=== PATIENT | male | born 1955 | race American Indian/Alaskan Native ===

== ENCOUNTER 2019-10-20 15:36 | Emergency (ER) | payer MEDICAID, MEDICARE ==
[2019-10-20 20:44] VITALS: BP 147/99
--- NOTE | 2019-10-20 20:49 | Emergency Department Report ---
Chief Complaint: Extremity Injury, Lower Stated Complaint: BODY ACHES Time Seen by Provider: 10/20/19 20:43 - HPI History of Present Illness: This is a 63 y.o. M. that presents to the ER with headache and burning pain to LLE for weeks. PMH of HTN, sciatica, CHF, BPH, and arthritis. Denies recent injury or weakness - Exam Vital Signs: Vital Signs 10/20/19 15:50 Temperature 98.4 F Pulse Rate 91 H Respiratory 18 Rate Blood Pressure 147/99 O2 Sat by Pulse 94 Oximetry MSE screening note: Focused history and physical exam performed. Due to findings the following was ordered: ED Disposition for MSE Condition: Stable
[2019-10-20] MEDS: KETOROLAC 30 MG/1 ML INJ IM ONE (23:38)
[2019-10-20] MEDS: dexAMETHasone 20 MG/5 ML VIAL IM ONE (23:38)
--- NOTE | 2019-10-21 00:49 | Emergency Department Report ---
ED General Adult HPI - General Chief complaint: Extremity Injury, Lower Stated complaint: BODY ACHES Time Seen by Provider: 10/20/19 20:43 Source: patient Mode of arrival: Ambulatory Limitations: No Limitations - History of Present Illness Initial comments: Mr. Rocha is a 63 y.o. M. that presents to the ER with compaint of bilat musculoskeletal pain , interimittent ,headache and low back pain with burning pain to LLE for weeks. pt has hx of HTN, sciatica, CHF, BPH, and arthritis. He denies recent injury or weakness , symptoms are exacerbated by bending ,twisting, reaching. Symptoms are relieved by rest. -: Sudden Location: back, lower extremity Severity scale (0 -10): 6 Quality: aching Consistency: intermittent Improves with: rest Worsens with: movement Associated Symptoms: denies other symptoms - Related Data Previous Rx's Medication Instructions Recorded Last Taken Type Acetaminophen [Non-Aspirin Extra 1,000 mg PO Q6HR PRN #60 tablet 10/21/19 Unknown Rx Strength] Diclofenac 1% [Diclofenac 1% 1 applicatio TP Q6H PRN #1 tube 10/21/19 Unknown Rx topical gel] Allergies Allergy/AdvReac Type Severity Reaction Status Date / Time No Known Allergies Allergy Unverified 10/20/19 15:39 ED Review of Systems ROS: Stated complaint: BODY ACHES Other details as noted in HPI Constitutional: denies: chills, fever Eyes: denies: eye pain, eye discharge, vision change ENT: denies: ear pain, throat pain Respiratory: denies: cough, shortness of breath, wheezing Cardiovascular: denies: chest pain, palpitations Endocrine: no symptoms reported Gastrointestinal: denies: abdominal pain, nausea, diarrhea Genitourinary: denies: urgency, dysuria Musculoskeletal: back pain, arthralgia, myalgia Skin: denies: rash, lesions Neurological: denies: headache, weakness, paresthesias Psychiatric: denies: anxiety, depression Hematological/Lymphatic: denies: easy bleeding, easy bruising ED Past Medical Hx - Past Medical History Previous Medical History?: Yes Hx Hypertension: Yes Hx GERD: Yes Hx Renal Disease: Yes Hx Arthritis: Yes Additional medical history: siatica - Surgical History Past Surgical History?: No - Social History Smoking Status: Former Smoker Substance Use Type: Alcohol - Medications Home Medications: Home Medications Medication Instructions Recorded Confirmed Last Taken Type Acetaminophen [Non-Aspirin Extra 1,000 mg PO Q6HR PRN #60 tablet 10/21/19 Unknown Rx Strength] Diclofenac 1% [Diclofenac 1% 1 applicatio TP Q6H PRN #1 tube 10/21/19 Unknown Rx topical gel] ED Physical Exam - General Limitations: No Limitations General appearance: alert, in no apparent distress - Head Head exam: Present: normocephalic, normal inspection - Eye Eye exam: Present: normal appearance, PERRL, EOMI Pupils: Present: normal accommodation - ENT ENT exam: Present: mucous membranes moist - Neck Neck exam: Present: normal inspection, full ROM. Absent: tenderness, meningismus - Respiratory Respiratory exam: Present: normal lung sounds bilaterally. Absent: respiratory distress, wheezes, stridor, chest wall tenderness - Cardiovascular Cardiovascular Exam: Present: regular rate, normal rhythm, normal heart sounds. Absent: systolic murmur, diastolic murmur, rubs, gallop - GI/Abdominal GI/Abdominal exam: Present: soft, normal bowel sounds. Absent: distended, tenderness, bruit, hernia - Rectal Rectal exam: Present: deferred - Extremities Exam Extremities exam: Present: normal inspection, full ROM, normal capillary refill. Absent: tenderness, pedal edema, joint swelling, calf tenderness - Back Exam Back exam: Present: normal inspection, full ROM, tenderness, muscle spasm, paraspinal tenderness. Absent: CVA tenderness (R), CVA tenderness (L), vertebral tenderness, rash noted - Expanded Back Exam Expanded Back exam: Absent: saddle anesthesia Back exam: Positive Straight Leg Raise: Left, Right - Neurological Exam Neurological exam: Present: alert, oriented X3, CN II-XII intact, normal gait, reflexes normal. Absent: motor sensory deficit - Expanded Neurological Exam Expanded Patient oriented to: Present: person, place, time Speech: Present: fluid speech Cranial nerves: EOM's Intact: Normal, Gag Reflex: Normal, Tongue Deviation: Normal, Nystagmus: Normal, Facial Sensation: Normal Motor strength exam: RUE: 5, LUE: 5, RLE: 5, LLE: 5 Best Eye Response (Jen): (4) open spontaneously Best Motor Response (Jen): (6) obeys commands Best Verbal Response (Jen): (5) oriented Jen Total: 15 - Psychiatric Psychiatric exam: Present: normal affect, normal mood - Skin Skin exam: Present: warm, dry, intact, normal color. Absent: rash ED Course Vital Signs 10/20/19 15:50 Temperature 98.4 F Pulse Rate 91 H Respiratory 18 Rate Blood Pressure 147/99 O2 Sat by Pulse 94 Oximetry ED Medical Decision Making - Medical Decision Making pain is improved plan dc to home with rx for nsaid, analgesic balm, pt will follow up with pcp in 2-3 days. pt dc'd home in stable condition. Critical care attestation.: If time is entered above; I have spent that time in minutes in the direct care of this critically ill patient, excluding procedure time. ED Disposition Clinical Impression: Chronic back pain Qualifiers: Back pain location: low back pain Back pain laterality: bilateral Sciatica presence: with sciatica Sciatica laterality: bilateral sciatica Qualified Code(s): M54.42 - Lumbago with sciatica, left side; M54.41 - Lumbago with sciatica, right side; G89.29 - Other chronic pain Disposition: DC-01 TO HOME OR SELFCARE Is pt being admited?: No Does the pt Need Aspirin: No Condition: Stable Instructions: Arthralgia (ED), Sciatica (ED), Chronic Back Pain (ED) Prescriptions: Diclofenac 1% [Diclofenac 1% topical gel] 1 applicatio TP Q6H PRN #1 tube PRN Reason: pain Acetaminophen [Non-Aspirin Extra Strength] 1,000 mg PO Q6HR PRN #60 tablet PRN Reason: pain Referrals: [facility] [Outside] - 3-5 Days Time of Disposition: 01:05
== END 2019-10-21 01:15 | disposition home or self-care (01) ==
LOC: ED 15:36
DX: M54.5 Low back pain (principal); G89.29 Other chronic pain; I10 Essential (primary) hypertension; K21.9 Gastro-esophageal reflux disease without esophagitis; M19.90 Unspecified osteoarthritis, unspecified site; Z87.891 Personal history of nicotine dependence; Z79.899 Other long term (current) drug therapy
CPT/HCPCS: 96372; 99282; J1100; J1885